=== PATIENT | female | born 1990 | race Caucasian/White ===

== ENCOUNTER 2019-02-01 20:56 | Emergency (ER) | payer MEDICAID ==
[~2019-02-01] VITALS: Ht 165.1 cm; Wt 72.6 kg
[~2019-02-01 20:56] MED LIST: AMOCLA875 PO; AMOX500 PO; AMOX875 PO; ANTIBIOTIC; ANTOXYBENA OT; BENTYL20 MG PO; CIPDEXSU LEFTEAR; CIPR500 PO; CODACEE120 PO; CYAN1000I IM; CYCL10 PO; Ciprodex Otic7.5 ML LEFTEAR; DHEA PO; ERGO50000 PO; HYDACE5 PO; IBUP400 PO; IBUP600 PO; IBUP800 PO; LAMO25; LORA1 PO; NAPR550 PO; NITR100CA PO; OXCA300; OXYACE5T PO; OXYACE7.5T PO; PHENA100 PO; PHENA200 PO; Percocet 5-3251 EACH PO; RXHYDACE PO; RXNAPNA550 PO; RXOXYACE PO; RXPHEN200 PO; RXPROACE PO; RXSULTRIDS PO; RXTRAM50 PO; STOMUL PO; SULTRIDS PO; TRAACE PO; TRAM50 PO; TRAZ100; Verotin-Gr Cap1 EACH PO; Zofran Odt8 MG SL; [UNRECOGNIZED DRUG - CODE] PO; work note
[2019-02-01] MEDS ORDERED: CEPH500 PO (21:24)
== END 2019-02-01 21:34 | disposition home or self-care (01) ==
LOC: ER 20:56
DX: L02.414 Cutaneous abscess of left upper limb (principal); Z88.2 Allergy status to sulfonamides; Z79.899 Other long term (current) drug therapy; F41.9 Anxiety disorder, unspecified; F17.210 Nicotine dependence, cigarettes, uncomplicated
CPT/HCPCS: 99283